=== PATIENT | female | born 1965 | race Caucasian/White ===

== ENCOUNTER 2025-03-28 13:13 | Emergency (ER) | payer OTHER ==
[2025-03-28] MEDS ORDERED: predniSONE 20 MG TAB ONE (14:03)
== END 2025-03-28 14:30 | disposition home or self-care (01) ==
LOC: BURERS 13:13
DX: J44.1 Chronic obstructive pulmonary disease with (acute) exacerbation (principal); I50.9 Heart failure, unspecified; F17.210 Nicotine dependence, cigarettes, uncomplicated; Z95.0 Presence of cardiac pacemaker
CPT/HCPCS: 71046; J7512

== ENCOUNTER 2025-05-12 09:40 | Emergency (ER) | payer OTHER ==
[2025-05-12] MEDS ORDERED: Acetaminophen 325 MG TAB ONE (10:02)
[2025-05-12] MEDS ORDERED: HYDROcodone/Acetaminophen 5/325 mg Tablet ONE (10:20)
[2025-05-12] MEDS ORDERED: Azithromycin 250 MG TAB ONE (12:23)
[2025-05-12] MEDS ORDERED: Amoxicillin/Potassium Clav 875 MG TAB ONE (12:23)
== END 2025-05-12 12:28 | disposition home or self-care (01) ==
LOC: BURERS 09:40
DX: S30.0XXA Contusion of lower back and pelvis, initial encounter (principal); J44.0 Chronic obstructive pulmonary disease with (acute) lower respiratory infection; J18.9 Pneumonia, unspecified organism; I50.9 Heart failure, unspecified; F17.210 Nicotine dependence, cigarettes, uncomplicated; Z95.0 Presence of cardiac pacemaker; Z79.899 Other long term (current) drug therapy; W18.30XA Fall on same level, unspecified, initial encounter
CPT/HCPCS: 70450; 71250; 74176

== ENCOUNTER 2025-06-20 09:09 | Emergency (ER) | payer OTHER ==
[2025-06-20] MEDS ORDERED: HYDROcodone/Acetaminophen 10/325 mg Tablet ONE (09:54)
[2025-06-20] MEDS ORDERED: Albuterol 2.5 MG (0.5 mL) NEB ONE (09:54)
[2025-06-20 10:07] LABS: Hematocrit 50.1 % (36.0-47.0); Hemoglobin 15.9 g/dL (12.0-16.0); Mean Corpuscular Hemoglobin 30.6 pg (27.0-31.0); Mean Corpuscular Volume 96.7 fl (78.0-98.0); Platelet Count 177 10x3/uL (130-400); Red Blood Cell (RBC) Count 5.18 mill/uL (4.20-5.40); White Blood Cell (WBC) Count 4.4 10x3/uL (4.8-10.8)
[2025-06-20 10:19] LABS: ALT (SGPT) 16 U/L (Less than 34); AST (SGOT) 23 U/L (11-34); Albumin 3.8 g/dL (3.1-4.5); Alkaline Phosphatase 100 U/L (40-110); Anion Gap 16 mmol/L (10-20); BUN (Urea Nitrogen) 8 mg/dL (9.8-20.1); Bilirubin, Total 0.2 mg/dL (0.3-1.2); Calc. Creatinine Clearance 0 mL/min (70-130); Calcium 9.2 mg/dL (7.8-10.44); Carbon Dioxide 26 mmol/L (22-29); Chloride 99 mmol/L (98-107); Globulin 3.1 g/dL (2.4-3.5); Glucose 106 mg/dL (70-105); Potassium 3.9 mmol/L (3.5-5.1); Sodium 137 mmol/L (136-145)
[2025-06-20 10:20] LABS: Troponin I 0.018 ng/mL (< 0.028)
[2025-06-20 10:42] LABS: MDiff Complete? YES
[2025-06-20] MEDS ORDERED: Albuterol 2.5 MG (3 mL) NEB ONE (11:24)
[2025-06-20] MEDS ORDERED: Ibuprofen 200 MG TAB ONE (11:29)
== END 2025-06-20 13:08 | disposition home or self-care (01) ==
LOC: BURERS 09:09
DX: R51.9 Headache, unspecified (principal); J44.1 Chronic obstructive pulmonary disease with (acute) exacerbation; I50.9 Heart failure, unspecified; F17.210 Nicotine dependence, cigarettes, uncomplicated; Z95.0 Presence of cardiac pacemaker
CPT/HCPCS: 36415; 71045; 80053; 83880; 84484; 85025; 93005; J7611; J7644